=== PATIENT | male | born 1970 | race Caucasian/White ===

== ENCOUNTER 2021-03-24 13:27 | Inpatient (IN) | payer MEDICAID, OTHER ==
[~2021-03-24] VITALS: Ht 170.2 cm; Wt 100.0 kg
[2021-03-24] MEDS ORDERED: methylPREDNISolone SOD SUCC 125 MG/2 ML VL IV ONE (14:00)
[2021-03-24] MEDS ORDERED: AZITHROMYCIN 500MG/ 250ML 250 ML IV ONE (14:00)
[2021-03-24] MEDS ORDERED: ZINC SULFATE 220mg CAP or TAB PO ONE (14:00)
[2021-03-24] MEDS ORDERED: CHOLECALCIFEROL (VITD3) 2,000 UNIT CAP/TAB PO ONE (14:00)
[2021-03-24] MEDS ORDERED: ASCORBIC ACID 500 MG TAB PO ONE (14:00)
[2021-03-24 15:20] LABS: Basophils # (auto) 0 10 ^3/uL (0-0.2); Basophils % (auto) 0.4 % (0.0-2.0); Eosinophils # (auto) 0 10 ^3/uL (0-0.8); Hematocrit 46.5 % (41.0-53.0); Hemoglobin 15.9 g/dL (13.5-17.5); Lymphocytes # (auto) 0.7 10 ^3/uL (0.4-5.4); Lymphocytes % (auto) 8.1 % (10.0-50.0); Mean Corpuscular Hgb Conc. 34.2 g/dL (32.0-36.0); Mean Corpuscular Volume 87.7 fL (80.0-100.0); Monocytes # (auto) 0.4 10 ^3/uL (0-1.3); Monocytes % (auto) 4.9 % (0.0-12.0); Neutrophils # (auto) 7.6 10 ^3/uL (1.6-8.6); Neutrophils % (auto) 86.6 % (37.0-80.0); Nucleated Red Blood Cells % 0.1 %; Red Cell Distribution Width 13.8 % (11.8-14.3); White Blood Cell 8.7 10^3/uL (4.4-10.8)
[2021-03-24 15:59] LABS: Albumin 2.9 g/dL (3.4-5.0); Calcium 8.1 mg/dL (8.5-10.1); Potassium 4.2 mmol/L (3.5-5.1)
[2021-03-24 16:08] LABS: BUN/Creatinine Ratio 23.9; Bilirubin, Total 0.7 mg/dL (0.2-1.0); CRP High Sensitivity 6.96 mg/dL (< 0.3); Total Protein 7.5 g/dL (6.4-8.2)
[2021-03-24] MEDS ORDERED: IOHEXOL 350 MG/ML 100ML IJ ONE (16:19)
[2021-03-24] MEDS ORDERED: ONDANSETRON HCL 4 MG/2 ML VIAL IV PRN (18:15)
[2021-03-24] MEDS ORDERED: MORPHINE SULFATE INJECTION 2 MG/ML SYRG IV PRN (18:15)
[2021-03-24] MEDS ORDERED: hydrALAZINE HCL 10 MG TAB PO PRN (18:15)
[2021-03-24] MEDS ORDERED: ACETAMINOPHEN 325 MG TAB PO PRN (18:15)
[2021-03-24] MEDS: ZINC SULFATE 220mg CAP or TAB PO SCH (21:33)
[2021-03-24] MEDS ORDERED: ALBUTEROL SULF 2.5 MG/0.5ML(0.5%) NEB SOLN NEB SCH (22:00)
[2021-03-24 23:00] VITALS: BP 110/68
[2021-03-24] MEDS: DOXYCYCLINE 100MG/250ML 250 ML IV SCH (23:13)
[2021-03-24] MEDS: ASCORBIC ACID 500 MG TAB PO SCH (23:13)
[2021-03-24] MEDS: ENOXAPARIN SOD 40 MG/0.4 ML SYRINGE SC SCH (23:13)
[2021-03-25 05:00] VITALS: BP 118/67
[2021-03-25 08:50] VITALS: BP_SYST 118; BP_SYST 99; BP_DIAS 58; BP_DIAS 67
[2021-03-25] MEDS: DexAMETHasone SOD PHOS 10MG/1ML VIAL INJ IV SCH (09:36)
[2021-03-25] MEDS: DOXYCYCLINE 100MG/250ML 250 ML IV SCH ×2 (09:36→21:28)
[2021-03-25] MEDS: ASCORBIC ACID 500 MG TAB PO SCH ×2 (09:37→21:28)
[2021-03-25] MEDS: ZINC SULFATE 220mg CAP or TAB PO SCH (09:37)
[2021-03-25] MEDS: ENOXAPARIN SOD 40 MG/0.4 ML SYRINGE SC SCH ×2 (09:37→21:28)
[2021-03-25] MEDS: FAMOTIDINE 20 MG TAB PO SCH (09:37)
[2021-03-25] MEDS: CHOLECALCIFEROL (VITD3) 1,000UNIT=25mCg TAB PO SCH (09:37)
[2021-03-25] MEDS ORDERED: ENOXAPARIN SOD 40 MG/0.4 ML SYRINGE SC SCH (10:00)
[2021-03-25 12:30] VITALS: BP 105/54
[2021-03-25] MEDS ORDERED: REMDESIVIR PER PHARMACY 0 ML IV SCH (14:00)
[2021-03-25] MEDS ORDERED: REMDESIVIR 200 MG in NS 210ml LOADING DOSE ADULT IV ONE (15:00)
[2021-03-25] MEDS: BUDESONIDE (INHALATION) 180 MCG IH IN SCH ×2 (15:35→22:00)
[2021-03-25 17:00] VITALS: BP 126/70
[2021-03-25 22:10] VITALS: BP 116/66
[2021-03-26 05:46] VITALS: BP 116/53
[2021-03-26] MEDS: BUDESONIDE (INHALATION) 180 MCG IH IN SCH ×2 (06:20→19:24)
[2021-03-26 07:11] LABS: Albumin 2.4 g/dL (3.4-5.0); Anion Gap 11 (5-15); Blood Urea Nitrogen 17 mg/dL (7-18); Calcium 7.4 mg/dL (8.5-10.1); Carbon Dioxide 22 mmol/L (21-32); Chloride 103 mmol/L (98-107); Glucose 132 mg/dL (74-106); Potassium 4.7 mmol/L (3.5-5.1); Sodium 136 mmol/L (136-145)
[2021-03-26 07:14] LABS: Alanine Aminotransferase 59 U/L (16-61); Aspartate Aminotransferase 77 U/L (15-37); BUN/Creatinine Ratio 30.4; GFR African American 197 mL/min; GFR Non-African American 163 mL/min
[2021-03-26 07:17] LABS: Alkaline Phosphatase 44 U/L (45-117); Bilirubin, Total 0.8 mg/dL (0.2-1.0); Total Protein 5.9 g/dL (6.4-8.2)
[2021-03-26] MEDS: FAMOTIDINE 20 MG TAB PO SCH (08:57)
[2021-03-26] MEDS: DOXYCYCLINE 100MG/250ML 250 ML IV SCH ×2 (08:57→21:50)
[2021-03-26] MEDS: ENOXAPARIN SOD 40 MG/0.4 ML SYRINGE SC SCH ×2 (08:57→21:50)
[2021-03-26] MEDS: DexAMETHasone SOD PHOS 10MG/1ML VIAL INJ IV SCH (08:57)
[2021-03-26] MEDS: ZINC SULFATE 220mg CAP or TAB PO SCH (08:57)
[2021-03-26] MEDS: CHOLECALCIFEROL (VITD3) 1,000UNIT=25mCg TAB PO SCH (08:57)
[2021-03-26] MEDS: ASCORBIC ACID 500 MG TAB PO SCH ×2 (08:57→21:50)
[2021-03-26 09:00] VITALS: BP 119/66
[2021-03-26 13:00] VITALS: BP 132/74
[2021-03-26] MEDS: REMDESIVIR 100mg 100 MG in SODIUM CHL 0.9% 230 ML IV SCH (14:58)
[2021-03-26 16:58] VITALS: BP 115/60
[2021-03-26 22:46] VITALS: BP 125/74
[2021-03-27 05:16] VITALS: BP 120/75
[2021-03-27 07:33] LABS: Potassium 4.4 mmol/L (3.5-5.1)
[2021-03-27 07:41] LABS: Albumin 2.2 g/dL (3.4-5.0); BUN/Creatinine Ratio 32.3; Bilirubin, Total 0.6 mg/dL (0.2-1.0); Calcium 7.4 mg/dL (8.5-10.1); Total Protein 5.7 g/dL (6.4-8.2)
[2021-03-27 09:00] VITALS: BP 134/60
[2021-03-27] MEDS: BUDESONIDE (INHALATION) 180 MCG IH IN SCH ×2 (09:29→18:12)
[2021-03-27] MEDS: DOXYCYCLINE 100MG/250ML 250 ML IV SCH ×2 (10:19→22:35)
[2021-03-27] MEDS: ENOXAPARIN SOD 40 MG/0.4 ML SYRINGE SC SCH ×2 (10:20→22:36)
[2021-03-27] MEDS: DexAMETHasone SOD PHOS 10MG/1ML VIAL INJ IV SCH (10:20)
[2021-03-27] MEDS: FAMOTIDINE 20 MG TAB PO SCH (10:20)
[2021-03-27] MEDS: ZINC SULFATE 220mg CAP or TAB PO SCH (10:21)
[2021-03-27] MEDS: ASCORBIC ACID 500 MG TAB PO SCH ×2 (10:21→22:35)
[2021-03-27] MEDS: CHOLECALCIFEROL (VITD3) 1,000UNIT=25mCg TAB PO SCH (10:21)
[2021-03-27 13:00] VITALS: BP 132/67
[2021-03-27] MEDS: REMDESIVIR 100mg 100 MG in SODIUM CHL 0.9% 230 ML IV SCH (14:53)
[2021-03-27 17:00] VITALS: BP 117/60
[2021-03-27 22:00] VITALS: BP 109/65
[2021-03-28 05:00] VITALS: BP 106/61
[2021-03-28] MEDS: BUDESONIDE (INHALATION) 180 MCG IH IN SCH ×2 (07:34→22:10)
[2021-03-28 07:51] LABS: Albumin 2.4 g/dL (3.4-5.0); Calcium 7.8 mg/dL (8.5-10.1); Potassium 4.7 mmol/L (3.5-5.1)
[2021-03-28 07:58] LABS: BUN/Creatinine Ratio 35.6; Bilirubin, Total 0.7 mg/dL (0.2-1.0); Total Protein 5.9 g/dL (6.4-8.2)
[2021-03-28 09:00] VITALS: BP 121/59
[2021-03-28] MEDS: DOXYCYCLINE 100MG/250ML 250 ML IV SCH ×2 (09:24→21:13)
[2021-03-28] MEDS: ASCORBIC ACID 500 MG TAB PO SCH ×2 (09:25→21:13)
[2021-03-28] MEDS: FAMOTIDINE 20 MG TAB PO SCH (09:25)
[2021-03-28] MEDS: ZINC SULFATE 220mg CAP or TAB PO SCH (09:25)
[2021-03-28] MEDS: CHOLECALCIFEROL (VITD3) 1,000UNIT=25mCg TAB PO SCH (09:25)
[2021-03-28] MEDS: DexAMETHasone SOD PHOS 10MG/1ML VIAL INJ IV SCH (09:25)
[2021-03-28] MEDS: ENOXAPARIN SOD 40 MG/0.4 ML SYRINGE SC SCH ×2 (09:25→21:13)
[2021-03-28] MEDS ORDERED: LACTULOSE 20Gm/30ML SOLN PO ONE (10:45)
[2021-03-28 13:00] VITALS: BP 132/72
[2021-03-28 13:55] VITALS: BP 132/72
[2021-03-28] MEDS: REMDESIVIR 100mg 100 MG in SODIUM CHL 0.9% 230 ML IV SCH (15:31)
[2021-03-28 17:00] VITALS: BP 129/73
[2021-03-28 22:00] VITALS: BP 108/72
[2021-03-29 05:00] VITALS: BP 99/57
[2021-03-29] MEDS: BUDESONIDE (INHALATION) 180 MCG IH IN SCH ×2 (07:28→21:30)
[2021-03-29 08:30] VITALS: BP 118/68
[2021-03-29] MEDS ORDERED: SALINE 0.65 % NASAL SPRAY 45ML BOTTLE EACHNOSTRI PRN (10:00)
[2021-03-29] MEDS: ENOXAPARIN SOD 40 MG/0.4 ML SYRINGE SC SCH ×2 (10:45→21:15)
[2021-03-29] MEDS: FAMOTIDINE 20 MG TAB PO SCH (10:46)
[2021-03-29] MEDS: ZINC SULFATE 220mg CAP or TAB PO SCH (10:46)
[2021-03-29] MEDS: ASCORBIC ACID 500 MG TAB PO SCH ×2 (10:46→21:15)
[2021-03-29] MEDS: CHOLECALCIFEROL (VITD3) 1,000UNIT=25mCg TAB PO SCH (10:46)
[2021-03-29] MEDS: DexAMETHasone SOD PHOS 10MG/1ML VIAL INJ IV SCH (10:46)
[2021-03-29] MEDS: DOXYCYCLINE 100MG/250ML 250 ML IV SCH ×2 (10:47→21:15)
[2021-03-29 10:52] LABS: Albumin 2.5 g/dL (3.4-5.0); Calcium 7.8 mg/dL (8.5-10.1); Potassium 5.1 mmol/L (3.5-5.1)
[2021-03-29 11:00] LABS: BUN/Creatinine Ratio 29.4; Bilirubin, Total 0.8 mg/dL (0.2-1.0); CRP High Sensitivity 2.28 mg/dL (< 0.3); Total Protein 6.6 g/dL (6.4-8.2)
[2021-03-29 12:30] VITALS: BP 113/67
[2021-03-29] MEDS: REMDESIVIR 100mg 100 MG in SODIUM CHL 0.9% 230 ML IV SCH (14:46)
[2021-03-29 16:50] VITALS: BP 127/62
[2021-03-29 21:46] VITALS: BP 111/65
[2021-03-30 05:05] VITALS: BP 115/63
[2021-03-30] MEDS: BUDESONIDE (INHALATION) 180 MCG IH IN SCH ×2 (06:01→18:50)
[2021-03-30 08:00] VITALS: BP 101/55
[2021-03-30 09:00] VITALS: BP 101/55
[2021-03-30] MEDS: DOXYCYCLINE 100MG/250ML 250 ML IV SCH ×2 (09:30→22:20)
[2021-03-30] MEDS: DexAMETHasone SOD PHOS 10MG/1ML VIAL INJ IV SCH (09:30)
[2021-03-30] MEDS: CHOLECALCIFEROL (VITD3) 1,000UNIT=25mCg TAB PO SCH (09:31)
[2021-03-30] MEDS: FAMOTIDINE 20 MG TAB PO SCH (09:31)
[2021-03-30] MEDS: ENOXAPARIN SOD 40 MG/0.4 ML SYRINGE SC SCH ×2 (09:31→22:21)
[2021-03-30] MEDS: ASCORBIC ACID 500 MG TAB PO SCH ×2 (09:31→22:21)
[2021-03-30] MEDS: ZINC SULFATE 220mg CAP or TAB PO SCH (09:31)
[2021-03-30 13:00] VITALS: BP 102/63
[2021-03-30 17:00] VITALS: BP 119/78
[2021-03-30 22:00] VITALS: BP 101/52
[2021-03-30] MEDS: HYDROcodone-ACET 5/325MG TAB PO PRN (23:04)
[2021-03-31 05:00] VITALS: BP 102/71
[2021-03-31 09:00] VITALS: BP 129/65
[2021-03-31] MEDS: BUDESONIDE (INHALATION) 180 MCG IH IN SCH ×2 (09:29→18:08)
[2021-03-31] MEDS: DexAMETHasone SOD PHOS 10MG/1ML VIAL INJ IV SCH (10:07)
[2021-03-31] MEDS: ZINC SULFATE 220mg CAP or TAB PO SCH (10:08)
[2021-03-31] MEDS: DOXYCYCLINE 100MG/250ML 250 ML IV SCH ×2 (10:08→21:22)
[2021-03-31] MEDS: FAMOTIDINE 20 MG TAB PO SCH (10:08)
[2021-03-31] MEDS: CHOLECALCIFEROL (VITD3) 1,000UNIT=25mCg TAB PO SCH (10:09)
[2021-03-31] MEDS: ENOXAPARIN SOD 40 MG/0.4 ML SYRINGE SC SCH ×2 (10:09→21:22)
[2021-03-31] MEDS: ASCORBIC ACID 500 MG TAB PO SCH ×2 (10:09→21:22)
[2021-03-31 17:00] VITALS: BP 138/72
[2021-03-31] MEDS: HYDROcodone-ACET 5/325MG TAB PO PRN (21:20)
[2021-03-31 22:00] VITALS: BP 106/56
[2021-04-01 05:00] VITALS: BP 101/70
[2021-04-01 07:04] LABS: Basophils # (auto) 0 10 ^3/uL (0-0.2); Basophils % (auto) 0.2 % (0.0-2.0); Eosinophils # (auto) 0 10 ^3/uL (0-0.8); Eosinophils % (auto) 0.2 % (0.0-7.0); Hemoglobin 14.7 g/dL (13.5-17.5); Lymphocytes # (auto) 0.6 10 ^3/uL (0.4-5.4); Lymphocytes % (auto) 7.2 % (10.0-50.0); Mean Corpuscular Hemoglobin 30.1 pg (28.0-32.0); Mean Corpuscular Hgb Conc. 33.5 g/dL (32.0-36.0); Monocytes # (auto) 0.2 10 ^3/uL (0-1.3); Monocytes % (auto) 2.7 % (0.0-12.0); Neutrophils # (auto) 7.3 10 ^3/uL (1.6-8.6); Neutrophils % (auto) 89.7 % (37.0-80.0); Red Blood Cells 4.89 10^6/uL (4.5-5.90); Red Cell Distribution Width 13.6 % (11.8-14.3); White Blood Cell 8.1 10^3/uL (4.4-10.8)
[2021-04-01 07:07] LABS: Potassium 4.2 mmol/L (3.5-5.1)
[2021-04-01 07:23] LABS: BUN/Creatinine Ratio 30.4; CRP High Sensitivity 7.56 mg/dL (< 0.3); Calcium 7.8 mg/dL (8.5-10.1)
[2021-04-01 08:00] VITALS: BP 106/66
[2021-04-01 08:54] VITALS: BP 106/66
[2021-04-01] MEDS: DOXYCYCLINE 100MG/250ML 250 ML IV SCH (09:52)
[2021-04-01] MEDS: DexAMETHasone SOD PHOS 10MG/1ML VIAL INJ IV SCH (09:52)
[2021-04-01] MEDS: FAMOTIDINE 20 MG TAB PO SCH (09:53)
[2021-04-01] MEDS: ASCORBIC ACID 500 MG TAB PO SCH ×2 (09:53→21:19)
[2021-04-01] MEDS: CHOLECALCIFEROL (VITD3) 1,000UNIT=25mCg TAB PO SCH (09:53)
[2021-04-01] MEDS: ZINC SULFATE 220mg CAP or TAB PO SCH (09:53)
[2021-04-01] MEDS: ENOXAPARIN SOD 40 MG/0.4 ML SYRINGE SC SCH ×2 (09:54→21:18)
[2021-04-01] MEDS: BUDESONIDE (INHALATION) 180 MCG IH IN SCH ×2 (11:25→22:00)
[2021-04-01] MEDS ORDERED: POLYETHYLENE GLYCOL 17 GM PWDR PO PRN (16:15)
[2021-04-01] MEDS ORDERED: DOCUSATE SOD 100 MG CAP PO PRN (16:15)
[2021-04-01] MEDS: ERTAPENEM SOD INJ 1 GM in SODIUM CHL 0.9% 50 ML IV SCH (16:24)
[2021-04-01] MEDS ORDERED: TOCILIZUMAB 400 MG in SODIUM CHL 0.9% 80 ML IV ONE (18:00)
[2021-04-01 21:54] VITALS: BP 135/76
[2021-04-02 06:02] VITALS: BP 107/72
[2021-04-02] MEDS: BUDESONIDE (INHALATION) 180 MCG IH IN SCH ×2 (06:55→20:00)
[2021-04-02] MEDS ORDERED: TOCILIZUMAB 400 MG in SODIUM CHL 0.9% 80 ML IV ONE (08:00)
[2021-04-02 09:00] VITALS: BP 97/58
[2021-04-02] MEDS: ENOXAPARIN SOD 40 MG/0.4 ML SYRINGE SC SCH ×2 (10:14→21:36)
[2021-04-02] MEDS: CHOLECALCIFEROL (VITD3) 1,000UNIT=25mCg TAB PO SCH (10:14)
[2021-04-02] MEDS: ZINC SULFATE 220mg CAP or TAB PO SCH (10:15)
[2021-04-02] MEDS: ASCORBIC ACID 500 MG TAB PO SCH ×2 (10:15→21:35)
[2021-04-02] MEDS: FAMOTIDINE 20 MG TAB PO SCH (10:15)
[2021-04-02 10:55] LABS: Basophils # (auto) 0 10 ^3/uL (0-0.2); Basophils % (auto) 0.1 % (0.0-2.0); Eosinophils # (auto) 0 10 ^3/uL (0-0.8); Eosinophils % (auto) 0.4 % (0.0-7.0); Hematocrit 42.8 % (41.0-53.0); Hemoglobin 14.4 g/dL (13.5-17.5); Lymphocytes # (auto) 0.7 10 ^3/uL (0.4-5.4); Lymphocytes % (auto) 10.8 % (10.0-50.0); Mean Corpuscular Hemoglobin 30.3 pg (28.0-32.0); Mean Corpuscular Hgb Conc. 33.7 g/dL (32.0-36.0); Mean Corpuscular Volume 89.9 fL (80.0-100.0); Monocytes # (auto) 0.2 10 ^3/uL (0-1.3); Monocytes % (auto) 3.4 % (0.0-12.0); Neutrophils # (auto) 5.8 10 ^3/uL (1.6-8.6); Neutrophils % (auto) 85.3 % (37.0-80.0); Red Blood Cells 4.76 10^6/uL (4.5-5.90); Red Cell Distribution Width 13.7 % (11.8-14.3); White Blood Cell 6.8 10^3/uL (4.4-10.8)
[2021-04-02 11:17] LABS: BUN/Creatinine Ratio 31.1; Calcium 7.8 mg/dL (8.5-10.1); Potassium 4.1 mmol/L (3.5-5.1)
[2021-04-02] MEDS: DexAMETHasone SOD PHOS 10MG/1ML VIAL INJ IV SCH (12:38)
[2021-04-02 13:00] VITALS: BP 94/64
[2021-04-02] MEDS: ERTAPENEM SOD INJ 1 GM in SODIUM CHL 0.9% 50 ML IV SCH (14:51)
[2021-04-02 17:00] VITALS: BP 107/71
[2021-04-02 22:00] VITALS: BP 120/68
[2021-04-03 05:00] VITALS: BP 104/54
[2021-04-03] MEDS: BUDESONIDE (INHALATION) 180 MCG IH IN SCH ×2 (07:35→19:55)
[2021-04-03 07:57] LABS: Basophils # (auto) 0 10 ^3/uL (0-0.2); Basophils % (auto) 0.1 % (0.0-2.0); Eosinophils # (auto) 0 10 ^3/uL (0-0.8); Eosinophils % (auto) 0.6 % (0.0-7.0); Hematocrit 40.9 % (41.0-53.0); Hemoglobin 13.6 g/dL (13.5-17.5); Lymphocytes # (auto) 0.9 10 ^3/uL (0.4-5.4); Mean Corpuscular Hgb Conc. 33.3 g/dL (32.0-36.0); Mean Corpuscular Volume 90.3 fL (80.0-100.0); Monocytes # (auto) 0.4 10 ^3/uL (0-1.3); Monocytes % (auto) 5.6 % (0.0-12.0); Neutrophils # (auto) 5.4 10 ^3/uL (1.6-8.6); Neutrophils % (auto) 80.7 % (37.0-80.0); Nucleated Red Blood Cells % 0.1 %; Red Blood Cells 4.53 10^6/uL (4.5-5.90); Red Cell Distribution Width 13.9 % (11.8-14.3); White Blood Cell 6.7 10^3/uL (4.4-10.8)
[2021-04-03 08:09] LABS: Calcium 7.9 mg/dL (8.5-10.1); Potassium 4.8 mmol/L (3.5-5.1)
[2021-04-03 08:20] LABS: BUN/Creatinine Ratio 34.5; CRP High Sensitivity 1.55 mg/dL (< 0.3)
[2021-04-03 09:00] VITALS: BP 106/74
[2021-04-03] MEDS: DexAMETHasone SOD PHOS 10MG/1ML VIAL INJ IV SCH (09:59)
[2021-04-03] MEDS: FAMOTIDINE 20 MG TAB PO SCH (10:00)
[2021-04-03] MEDS: ZINC SULFATE 220mg CAP or TAB PO SCH (10:00)
[2021-04-03] MEDS: ASCORBIC ACID 500 MG TAB PO SCH ×2 (10:00→21:19)
[2021-04-03] MEDS: CHOLECALCIFEROL (VITD3) 1,000UNIT=25mCg TAB PO SCH (10:00)
[2021-04-03] MEDS: ENOXAPARIN SOD 40 MG/0.4 ML SYRINGE SC SCH ×2 (10:00→21:19)
[2021-04-03 17:00] VITALS: BP 103/65
[2021-04-03 22:00] VITALS: BP 108/70
[2021-04-04 05:00] VITALS: BP 96/54
[2021-04-04] MEDS: BUDESONIDE (INHALATION) 180 MCG IH IN SCH ×2 (07:13→20:26)
[2021-04-04 07:16] LABS: Basophils # (auto) 0 10 ^3/uL (0-0.2); Basophils % (auto) 0.2 % (0.0-2.0); Eosinophils # (auto) 0 10 ^3/uL (0-0.8); Eosinophils % (auto) 0.3 % (0.0-7.0); Hematocrit 42.1 % (41.0-53.0); Lymphocytes # (auto) 1.2 10 ^3/uL (0.4-5.4); Lymphocytes % (auto) 19.6 % (10.0-50.0); Mean Corpuscular Hemoglobin 29.7 pg (28.0-32.0); Mean Corpuscular Hgb Conc. 33.2 g/dL (32.0-36.0); Mean Corpuscular Volume 89.7 fL (80.0-100.0); Monocytes # (auto) 0.5 10 ^3/uL (0-1.3); Monocytes % (auto) 7.5 % (0.0-12.0); Neutrophils # (auto) 4.5 10 ^3/uL (1.6-8.6); Neutrophils % (auto) 72.4 % (37.0-80.0); Red Cell Distribution Width 13.7 % (11.8-14.3); White Blood Cell 6.2 10^3/uL (4.4-10.8)
[2021-04-04 07:21] LABS: Potassium 4.3 mmol/L (3.5-5.1)
[2021-04-04 07:30] LABS: BUN/Creatinine Ratio 30.2; Calcium 7.8 mg/dL (8.5-10.1)
[2021-04-04 09:00] VITALS: BP 102/65
[2021-04-04] MEDS: ZINC SULFATE 220mg CAP or TAB PO SCH (09:09)
[2021-04-04] MEDS: DexAMETHasone SOD PHOS 10MG/1ML VIAL INJ IV SCH (09:09)
[2021-04-04] MEDS: ASCORBIC ACID 500 MG TAB PO SCH ×2 (09:10→20:50)
[2021-04-04] MEDS: CHOLECALCIFEROL (VITD3) 1,000UNIT=25mCg TAB PO SCH (09:10)
[2021-04-04] MEDS: FAMOTIDINE 20 MG TAB PO SCH (09:10)
[2021-04-04] MEDS: ENOXAPARIN SOD 40 MG/0.4 ML SYRINGE SC SCH ×2 (10:55→20:50)
[2021-04-04 13:00] VITALS: BP 121/69
[2021-04-04 17:00] VITALS: BP 116/72
[2021-04-04 22:50] VITALS: BP 108/70
[2021-04-05 05:26] VITALS: BP 105/62
[2021-04-05 06:18] LABS: Basophils # (auto) 0 10 ^3/uL (0-0.2); Basophils % (auto) 0.5 % (0.0-2.0); Eosinophils # (auto) 0 10 ^3/uL (0-0.8); Eosinophils % (auto) 0.4 % (0.0-7.0); Hemoglobin 13.8 g/dL (13.5-17.5); Lymphocytes # (auto) 1.3 10 ^3/uL (0.4-5.4); Lymphocytes % (auto) 22.8 % (10.0-50.0); Mean Corpuscular Hemoglobin 30.4 pg (28.0-32.0); Mean Corpuscular Hgb Conc. 33.7 g/dL (32.0-36.0); Mean Corpuscular Volume 90.2 fL (80.0-100.0); Monocytes # (auto) 0.6 10 ^3/uL (0-1.3); Monocytes % (auto) 10.4 % (0.0-12.0); Neutrophils # (auto) 3.7 10 ^3/uL (1.6-8.6); Neutrophils % (auto) 65.9 % (37.0-80.0); Nucleated Red Blood Cells % 0.1 %; Red Blood Cells 4.55 10^6/uL (4.5-5.90); Red Cell Distribution Width 13.6 % (11.8-14.3); White Blood Cell 5.6 10^3/uL (4.4-10.8)
[2021-04-05 06:19] LABS: Calcium 7.7 mg/dL (8.5-10.1); Potassium 4.1 mmol/L (3.5-5.1)
[2021-04-05 06:22] LABS: BUN/Creatinine Ratio 25.6
[2021-04-05] MEDS: BUDESONIDE (INHALATION) 180 MCG IH IN SCH ×2 (07:05→22:34)
[2021-04-05] MEDS: DexAMETHasone SOD PHOS 10MG/1ML VIAL INJ IV SCH (08:58)
[2021-04-05] MEDS: ENOXAPARIN SOD 40 MG/0.4 ML SYRINGE SC SCH ×2 (08:59→21:11)
[2021-04-05] MEDS: FAMOTIDINE 20 MG TAB PO SCH (08:59)
[2021-04-05] MEDS: ASCORBIC ACID 500 MG TAB PO SCH ×2 (08:59→21:10)
[2021-04-05] MEDS: ZINC SULFATE 220mg CAP or TAB PO SCH (08:59)
[2021-04-05] MEDS: CHOLECALCIFEROL (VITD3) 1,000UNIT=25mCg TAB PO SCH (08:59)
[2021-04-05 09:00] VITALS: BP 101/64
[2021-04-05 13:00] VITALS: BP 103/65
[2021-04-05 17:00] VITALS: BP 117/72
[2021-04-05 23:12] VITALS: BP 101/60
[2021-04-06 05:16] VITALS: BP 122/72
[2021-04-06 07:23] LABS: Potassium 4.3 mmol/L (3.5-5.1)
[2021-04-06 07:27] LABS: Basophils # (auto) 0 10 ^3/uL (0-0.2); Basophils % (auto) 0.4 % (0.0-2.0); Eosinophils # (auto) 0 10 ^3/uL (0-0.8); Eosinophils % (auto) 0.4 % (0.0-7.0); Hematocrit 42.1 % (41.0-53.0); Hemoglobin 14.2 g/dL (13.5-17.5); Lymphocytes # (auto) 1.5 10 ^3/uL (0.4-5.4); Lymphocytes % (auto) 26.3 % (10.0-50.0); Mean Corpuscular Hemoglobin 30.1 pg (28.0-32.0); Mean Corpuscular Hgb Conc. 33.7 g/dL (32.0-36.0); Mean Corpuscular Volume 89.4 fL (80.0-100.0); Monocytes # (auto) 0.7 10 ^3/uL (0-1.3); Monocytes % (auto) 12.4 % (0.0-12.0); Neutrophils # (auto) 3.4 10 ^3/uL (1.6-8.6); Neutrophils % (auto) 60.5 % (37.0-80.0); Nucleated Red Blood Cells % 0.2 %; Red Blood Cells 4.71 10^6/uL (4.5-5.90); Red Cell Distribution Width 13.7 % (11.8-14.3); White Blood Cell 5.7 10^3/uL (4.4-10.8)
[2021-04-06 07:28] LABS: BUN/Creatinine Ratio 26.2; Calcium 8.1 mg/dL (8.5-10.1)
[2021-04-06] MEDS: BUDESONIDE (INHALATION) 180 MCG IH IN SCH ×2 (07:31→23:19)
[2021-04-06 09:00] VITALS: BP 110/69
[2021-04-06] MEDS: DexAMETHasone SOD PHOS 10MG/1ML VIAL INJ IV SCH (09:36)
[2021-04-06] MEDS: ZINC SULFATE 220mg CAP or TAB PO SCH (09:37)
[2021-04-06] MEDS: FAMOTIDINE 20 MG TAB PO SCH (09:38)
[2021-04-06] MEDS: ASCORBIC ACID 500 MG TAB PO SCH ×2 (09:38→22:11)
[2021-04-06] MEDS: ENOXAPARIN SOD 40 MG/0.4 ML SYRINGE SC SCH ×2 (09:39→22:11)
[2021-04-06] MEDS: CHOLECALCIFEROL (VITD3) 1,000UNIT=25mCg TAB PO SCH (09:39)
[2021-04-06] MEDS: HYDROcodone-ACET 5/325MG TAB PO PRN (09:49)
[2021-04-06 13:00] VITALS: BP 111/70
[2021-04-06 17:00] VITALS: BP 102/67
[2021-04-06 22:00] VITALS: BP 100/63
[2021-04-07 05:00] VITALS: BP 106/66
[2021-04-07] MEDS: ZINC SULFATE 220mg CAP or TAB PO SCH (08:15)
[2021-04-07] MEDS: FAMOTIDINE 20 MG TAB PO SCH (08:15)
[2021-04-07] MEDS: ENOXAPARIN SOD 40 MG/0.4 ML SYRINGE SC SCH ×2 (08:15→21:39)
[2021-04-07] MEDS: ASCORBIC ACID 500 MG TAB PO SCH ×2 (08:15→21:39)
[2021-04-07] MEDS: CHOLECALCIFEROL (VITD3) 1,000UNIT=25mCg TAB PO SCH (08:16)
[2021-04-07] MEDS: BUDESONIDE (INHALATION) 180 MCG IH IN SCH ×2 (08:44→20:10)
[2021-04-07 08:53] LABS: Basophils # (auto) 0 10 ^3/uL (0-0.2); Basophils % (auto) 0.3 % (0.0-2.0); Eosinophils # (auto) 0 10 ^3/uL (0-0.8); Eosinophils % (auto) 0.2 % (0.0-7.0); Hematocrit 41.1 % (41.0-53.0); Lymphocytes # (auto) 1.8 10 ^3/uL (0.4-5.4); Lymphocytes % (auto) 27.4 % (10.0-50.0); Mean Corpuscular Hemoglobin 30.6 pg (28.0-32.0); Mean Corpuscular Hgb Conc. 34.1 g/dL (32.0-36.0); Mean Corpuscular Volume 89.7 fL (80.0-100.0); Monocytes # (auto) 0.8 10 ^3/uL (0-1.3); Monocytes % (auto) 11.4 % (0.0-12.0); Neutrophils # (auto) 4.1 10 ^3/uL (1.6-8.6); Neutrophils % (auto) 60.7 % (37.0-80.0); Nucleated Red Blood Cells % 0.1 %; Red Blood Cells 4.58 10^6/uL (4.5-5.90); Red Cell Distribution Width 13.3 % (11.8-14.3); White Blood Cell 6.7 10^3/uL (4.4-10.8)
[2021-04-07 09:00] VITALS: BP 100/60
[2021-04-07 09:08] LABS: Potassium 4.2 mmol/L (3.5-5.1)
[2021-04-07 09:12] LABS: BUN/Creatinine Ratio 25.7; Calcium 7.9 mg/dL (8.5-10.1)
[2021-04-07] MEDS: HYDROcodone-ACET 5/325MG TAB PO PRN (10:44)
[2021-04-07 13:00] VITALS: BP 109/68
[2021-04-07 17:00] VITALS: BP 102/68
[2021-04-07 21:30] VITALS: BP 88/50
[2021-04-08 05:00] VITALS: BP 103/64
[2021-04-08] MEDS: BUDESONIDE (INHALATION) 180 MCG IH IN SCH ×2 (06:22→22:51)
[2021-04-08] MEDS: ASCORBIC ACID 500 MG TAB PO SCH ×2 (08:34→21:35)
[2021-04-08] MEDS: FAMOTIDINE 20 MG TAB PO SCH (08:34)
[2021-04-08] MEDS: CHOLECALCIFEROL (VITD3) 1,000UNIT=25mCg TAB PO SCH (08:35)
[2021-04-08] MEDS: ENOXAPARIN SOD 40 MG/0.4 ML SYRINGE SC SCH ×2 (08:35→21:36)
[2021-04-08 09:00] VITALS: BP 91/52
[2021-04-08] MEDS: ZINC SULFATE 220mg CAP or TAB PO SCH (10:00)
[2021-04-08 13:00] VITALS: BP 99/70
[2021-04-08 13:58] VITALS: BP 99/70
[2021-04-08 17:00] VITALS: BP 110/63
[2021-04-08 22:00] VITALS: BP 101/73
[2021-04-09 05:00] VITALS: BP 94/60
[2021-04-09 08:47] VITALS: BP 106/70
[2021-04-09] MEDS: ZINC SULFATE 220mg CAP or TAB PO SCH (10:47)
[2021-04-09] MEDS: ASCORBIC ACID 500 MG TAB PO SCH (10:47)
[2021-04-09] MEDS: CHOLECALCIFEROL (VITD3) 1,000UNIT=25mCg TAB PO SCH (10:48)
[2021-04-09] MEDS: ENOXAPARIN SOD 40 MG/0.4 ML SYRINGE SC SCH (10:48)
[2021-04-09] MEDS: FAMOTIDINE 20 MG TAB PO SCH (10:48)
[2021-04-09 13:38] VITALS: BP 113/71
[2021-04-09 17:05] VITALS: BP 103/66
== END 2021-04-09 19:02 | disposition home or self-care (01) | DRG 137 ==
LOC: EDBD 13:27 → ER 13:27 → TELE 18:25 → TELE-EAST 22:05
PROVIDERS: ADMIT Nurse Practitioner Family; ATTEND Nurse Practitioner Family
PROC: XW033E5 Introduction of Remdesivir Anti-infective into Peripheral Vein, Percutaneous Approach, New Technology Group 5 (ICD-10-PCS; principal; 2021-03-25)
PROC: 05HC33Z Insertion of Infusion Device into Left Basilic Vein, Percutaneous Approach (ICD-10-PCS; 2021-04-02)
DX: U07.1 COVID-19 (principal); J96.01 Acute respiratory failure with hypoxia; J12.82 Pneumonia due to coronavirus disease 2019; E87.1 Hypo-osmolality and hyponatremia; D89.839 Cytokine release syndrome, grade unspecified; E66.9 Obesity, unspecified; K76.0 Fatty (change of) liver, not elsewhere classified; G47.00 Insomnia, unspecified; Z68.36 Body mass index [BMI] 36.0-36.9, adult; Z90.49 Acquired absence of other specified parts of digestive tract; Z83.3 Family history of diabetes mellitus
CPT/HCPCS: 36415; 36600; 71045; 71275; 80048; 80053; 82728; 82805; 83605; 84484; 85025; 85379; 86141; 87040; 87070; 87205; 87426; 93005; 93970; 94640; 96365; 96375; 99291; G0378; J1100; J1335; J3490